=== PATIENT | male | born 1975 | race Caucasian/White ===

== ENCOUNTER → 2020-07-23 08:54 | Outpatient (CLI) | payer BC, SELFPAY ==
--- NOTE | ~2020-07-23 | MR_ITS ---
EXAMINATION: MR lumbar spine wo con DATE: 07/23/2020 09:45 INDICATION: Low back pain. Other spondylosis with radiculopathy, lumbosacral region. TECHNIQUE: Magnetic resonance imaging (MRI) of the lumbar spine was performed without intravenous con trast. Sequences included sagittal T2-weighted FSE, sagittal T2-weighted FS FSE, sagittal T1-weighted FSE, and axial T2-weighted FSE. COMPARISON: None FINDINGS: There is 4 degrees levocurvature of lumbar spine. Vertebral body heights are normal. There is moderately decreased disc height at L4-L5 and mildly decreased disc height at L5-S1 with endplate remodeling. The distal spinal cord signal intensity is normal. The conus medullaris is at L1. The fol lowing disc levels are specifically discussed: L1-L2: The disc does not extend beyond the endplate margin. There is mild bilateral facet joint osteo arthritis. There is no neural foraminal stenosis. There is no central canal stenosis. L2-L3: The disc does not extend beyond the endplate margin. There is mild bilateral facet joint osteo arthritis. There is no neural foraminal stenosis. There is no central canal stenosis. L3-L4: The disc does not extend beyond the endplate margin. There is mild bilateral facet joint osteo arthritis. There is no neural foraminal stenosis. There is no central canal stenosis. L4-L5: The disc is bulging with superimposed central extrusion that abuts the L5 nerve roots in the l ateral recesses. There is mild bilateral facet joint osteoarthritis. There is moderate bilateral neur al foraminal stenosis. There is mild central canal stenosis. L5-S1: There is a central protrusion with annular fissure. There is mild right and moderate left face t joint osteoarthritis. There is no neural foraminal stenosis. There is mild central canal stenosis. IMPRESSION: 1. Moderate lower lumbar spondylosis. Reviewed, dictated and finalized at location A. R MANAGER
== END ==
PROVIDERS: PCP Family Medicine; Visit Provider Family Medicine
DX: M47.27 Other spondylosis with radiculopathy, lumbosacral region (principal)
CPT/HCPCS: 72148

== ENCOUNTER → 2020-11-05 13:09 | Outpatient (CLI) | payer BC, SELFPAY ==
--- NOTE | ~2020-11-05 | XR_ITS ---
XR lumbar spine 2-3V DATE: 11/05/2020 13:37 INDICATION: Low back pain TECHNIQUE: Standing AP, lateral and coned lateral lumbosacral views COMPARISON: 07/23/2020 MRI lumbar spine FINDINGS: Status post posterior and interbody spinal fusion at L4-S1. No hardware failure or displace ment is noted. Normal alignment of the lumbar spine. No fracture or bone destruction is evident. The lumbar pedicles are intact. The sacroiliac joints are intact. IMPRESSION: Status post posterior and interbody spinal fusion at L4-S1 Reviewed, dictated and finalized at location A.
== END ==
PROVIDERS: Visit Provider Neurological Surgery
DX: M54.5 Low back pain (principal); Z98.1 Arthrodesis status
CPT/HCPCS: 72100

== ENCOUNTER → 2020-12-29 07:47 | Outpatient (CLI) | payer BC, SELFPAY ==
--- NOTE | ~2020-12-29 | XR_ITS ---
EXAMINATION: XR lumbar spine 2-3V EXAM DATE: 12/29/2020 08:32 INDICATION: lbp, s/p L4-L5 L5-S1 decompressive laminectomy and fusion. TECHNIQUE: Lumber spine frontal, lateral, lateral L5-S1 projections for interpretation. Comparison is made to prior examination from 11/05/2020. FINDINGS: Lumbar fusion hardware L4-S1 with posterior hardware and interbody devices. L4 bilateral l aminotomies and L5 laminectomies suspected, correlate with history. Sacrum, sacroiliac joints, sacral arcuate lines are intact. Mild aortic arterial sclerosis. The vertebral bodies are aligned in the AP dimension. Vertebral body and disc heights are well-maintained. Paraspinal soft tissue is unremarkab le. IMPRESSION: 1. Intact L4-S1 fusion. 2. Mild facet arthropathy. Reviewed, dictated and finalized at location B.
== END ==
PROVIDERS: Visit Provider Neurological Surgery
DX: M54.5 Low back pain (principal); Z98.1 Arthrodesis status
CPT/HCPCS: 72100

== ENCOUNTER → 2022-05-30 14:54 | Outpatient (CLI) | payer BC, SELFPAY ==
--- NOTE | ~2022-05-30 | US_ITS ---
EXAMINATION: US axilla RT DATE: 05/30/2022 15:17 INDICATION: Right axillary lump TECHNIQUE: Multiple grayscale and Doppler ultrasound images of the region of concern at the right axi lla were obtained. COMPARISON: None FINDINGS: 4 x 4 x 2 mm anechoic cystic lesion in the subcutaneous tissues within 2 mm the skin surface without evident internal vascular flow on color Doppler. Near the cystic lesion is an additional relatively s uperficial 9 x 8 x 5 mm region with poorly defined margins which appears isoechoic and with similar e chotexture to the surrounding subcutaneous fat. There is a second 2.0 x 1.5 x 2.1 cm lesion in the de eper subcutaneous tissues which is also isoechoic and with similar echotexture and internal septated architecture as the surrounding fat. Finally there is a 1.9 x 1.4 x 1.4 cm lesion with superficial ma rgin proximal 1.6 cm from the skin surface which demonstrates peripheral irregular more echogenic rim surrounding a central more hypoechoic region. IMPRESSION: 1. 4 lesions in the subcutaneous tissues, the smallest which appears simple cystic and the 3 larger l esions as detailed above with nonspecific imaging features indeterminate for neoplasm versus artifact ual nodular appearance of subcutaneous fat. This could be better differentiated with either CT or MRI . Reviewed, dictated and finalized at location A. 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 4 lesions in the subcutaneous tissues, the smallest which appears simple cys tic and the 3 larger lesions as detailed above with nonspecific imaging feature s indeterminate for neoplasm versus artifactual nodular appearance of subcutane ous fat. This could be better differentiated with either CT or MRI.
== END ==
PROVIDERS: PCP Nurse Practitioner Family; Visit Provider Nurse Practitioner Family
DX: R22.30 Localized swelling, mass and lump, unspecified upper limb (principal)
CPT/HCPCS: 76882

== ENCOUNTER → 2022-07-14 07:46 | Outpatient (CLI) | payer BC, SELFPAY ==
--- NOTE | ~2022-07-14 | MR_ITS ---
MRI of the right shoulder Technique: Axial proton-density fat-sat images, coronal proton density fat-sat and T2 fat-sat images, and sagittal T1-weighted and T2 fat-sat images were acquired. Following intravenous administration o f 20 cc MultiHance gadolinium, T1-weighted fat-sat imaging was performed in the axial and coronal guillermina porsha. Clinical History: Axillary mass Findings: No significant AC joint degenerative changes identified. Supraspinatus and infraspinatus tendons appear intact. Subscapularis tendon is intact. Tendon of the long head of the biceps is intact. No distinct evidence for labral tear. No degenerative change or effusion of the glenohumeral joint. Inferior glenohumeral ligament appears intact. No muscle atrophy or edema. There is nonspecific subcutaneous soft tissue edema long the lateral righ t hemithorax region/right axilla, without focal fluid collection or definite discrete mass. There is mild enhancement of this area of edematous change on postcontrast images. No pathologic lymphadenopat hy identified. Impression: Amorphous subcutaneous soft tissue edema along the lateral right hemithorax/right axilla, with mild e nhancement. This is nonspecific. Consider cellulitis or other local inflammatory process. No discrete mass or abscess/fluid collection identified. Reviewed, dictated and finalized at location . 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 This is nonspecific. Consider cellulitis or o ther local inflammatory process. No discrete mass or abscess/fluid collection i dentified.
== END ==
PROVIDERS: Visit Provider Surgery
DX: R60.9 Edema, unspecified (principal)
CPT/HCPCS: 73223; A9577

== ENCOUNTER 2023-05-13 12:48 | Emergency (ER) | payer BC, SELFPAY ==
[2023-05-13 13:08] VITALS: BP 129/85; PULSE 103; RESP 16; TEMP 36.2; O2SAT 96
--- NOTE | 2023-05-13 13:17 | ED.URI ---
HPI - URI/Sore Throat General Chief Complaint: Upper Respiratory Infection Stated Complaint: chest congestion,cough Time Seen by Provider: 05/13/23 13:18 Source: patient, RN notes reviewed and old records reviewed Mode of arrival: ambulatory Limitations: no limitations History of Present Illness HPI Narrative: 47-year-old male presents to the [facility] with complaints of cough and chest congestion that started on Monday, 3 days ago. Has been taking NyQuil Denies any fevers, chest pain, abdominal pain. Denies any shortness of breath Related Data Home Medications Medication Instructions Recorded Confirmed methylphenidate HCl 54 mg 54 mg PO DAILY 05/13/23 05/13/23 tablet,extended release 24 hr Allergies Allergy/AdvReac Type Severity Reaction Status Date / Time No Known Allergies Allergy Verified 05/13/23 13:15 Review of Systems Review of Systems: All systems reviewed & are unremarkable except as noted in HPI and below Constitutional: Constitutional: Reports no additional constitutional complaints Eyes: Eyes: Reports no additional eye complaints ENT: Reports system reviewed and no additional complaints, except as documented Cardiovascular: Cardiovascular: Reports no additional cardiovascular complaints, Denies chest pain and Denies dyspnea Respiratory: Respiratory: Reports as per HPI, Reports chest congestion, Reports cough, Denies dyspnea and Denies wheezing Gastrointestinal: Gastrointestinal: Reports no additional gastrointestinal complaints, Denies abdominal pain, Denies nausea and Denies vomiting Musculoskeletal: Musculoskeletal: Reports no additional musculoskeletal complaints Integumentary/Breasts: Skin/Breast: Reports system reviewed and no additional complaints, except as docu Neurologic: Reports system reviewed and no additional complaints, except as documented Psychiatric: Psychiatric: Reports no additional psychiatric complaints Allergic/Immunologic: Allergic/Immunologic: Reports no additional allergic/immunologic complaints [facility] Past Medical History Medical History ADD (attention deficit disorder) BMI 26.0-26.9,adult BMI 28.0-28.9,adult Leg numbness Lumbosacral radiculopathy due to degenerative joint disease of spine Screening for lipid disorders Screening for prostate cancer Tobacco abuse Surgical History Surgical History H/O excision of mass History of back surgery Family History Family History Father Alcoholic Mother No problems noted. Sibling No problems noted. Other Cerebrovascular accident Diabetes mellitus Family history of irritable bowel syndrome Social History Social History Smoking status: Former smoker Tobacco type: e-cigarettes/vaping Second hand tobacco smoke exposure: No Alcohol intake: current Drinks per week: 3 Substance use: never Substance use type: does not use Lack of Transportation: No Lack of Food: Never True Current Housing: I Have Housing Concerned About Future Housing: No Difficulty Paying Gas/Electric Bills: No Difficulty Paying for Meds: No Currently Unemployed: No Education: High School Diploma/GED Difficulty w/ Childcare or Family Care: No Living arrangements: with family Occupation/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 There is no relevant family history pertinent to the patient complaint. Exam Const: General: cooperative, healthy appearing, comfortable, no acute distress, well developed, alert and well nourished Nutritional Appearance: well
== END 2023-05-13 13:35 | disposition home or self-care (01) ==
PROVIDERS: Emergency Provider Nurse Practitioner; PCP Family Medicine
DX: R09.82 Postnasal drip (principal); J40 Bronchitis, not specified as acute or chronic; J06.9 Acute upper respiratory infection, unspecified; F98.8 Other specified behavioral and emotional disorders with onset usually occurring in childhood and adolescence
CPT/HCPCS: 99213; G0463

== ENCOUNTER 2024-05-21 00:07 | Day surgery (SDC) | payer BC, SELFPAY ==
[2024-05-06 13:06] VITALS: BMI 28.9
[2024-05-21 06:57] VITALS: BP 114/77; PULSE 91; RESP 18; TEMP 36.1; O2SAT 100
[2024-05-21] MEDS: LACTATED RINGERS 1,000 ML 150 ML IV CONT (07:05)
--- NOTE | 2024-05-21 07:42 | P.PNAN_ITS ---
Anes - Initial Pre Proc Eval Procedure: Operation Date: 05/21/24 08:00 Proposed Procedures p Screening Colonoscopy - Jayy Pang DO Date/Time: 05/21/24 07:42 Surgeon: Jayy Pang DO Pre Op Diagnosis: screening for malignant neoplasm of colon Patient Data Age: 48 Gender: M Height: 1.88 m Weight: 104.8 kg Last Vital Signs Temp 97 F L 05/21/24 06:57 Pulse 91 05/21/24 06:57 Resp 18 05/21/24 06:57 BP 114/77 05/21/24 06:57 Pulse Ox 100 05/21/24 06:57 O2 Del Method Room Air 05/21/24 06:57 Allergies Allergy/AdvReac Type Severity Reaction Status Date / Time No Known Allergies Allergy Verified 05/21/24 06:56 Home Medications Medication Instructions Recorded Confirmed Type lisdexamfetamine 60 mg capsule 60 mg PO DAILY #30 caps 04/12/24 05/21/24 Rx (Vyvanse) suvorexant 10 mg tablet (Belsomra) 10 mg PO QHS PRN Insomnia 05/06/24 05/21/24 History Patient hx anesthesia problems: none Family hx anesthesia problems: none Results Review: All pre-operative results and documents have been reviewed as part of the pre- operative evaluation. [facility] Past Medical History Medical History ADD (attention deficit disorder) BMI 26.0-26.9,adult BMI 28.0-28.9,adult BMI 29.0-29.9,adult Leg numbness Lumbosacral radiculopathy due to degenerative joint disease of spine Screening for lipid disorders Screening for prostate cancer Tobacco abuse Surgical History Surgical History H/O excision of mass History of back surgery Family History Family History Father Alcoholic Mother No problems noted. Sibling No problems noted. Other Cerebrovascular accident Diabetes mellitus Family history of irritable bowel syndrome Social History Social History Smoking status: Former smoker Tobacco type: e-cigarettes/vaping Second hand tobacco smoke exposure: No Alcohol intake: current Drinks per week: 3 Substance use: never Substance use type: does not use Lack of Transportation: No Lack of Food: Never True Current Housing: I Have Housing Concerned About Future Housing: No Difficulty Paying Gas/Electric Bills: No Difficulty Paying for Meds: No Currently Unemployed: No Education: High School Diploma/GED Difficulty w/ Childcare or Family Care: No Living arrangements: with family Occupation/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: occupation 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 Informed Consent: The patient's anesthetic plan and its attendant risks and benefits were discussed with the patient/family/POA. Questions were solicited and answers provided to the satisfaction of the patient/family/POA.
--- NOTE | 2024-05-21 07:59 | P.HP_ITS ---
H&P: HPI History of Present Illness Date/Time: 05/21/24 07:59 Chief Complaint: Screening for colorectal cancer Narrative: this is a 48-year-old man who presents for colonoscopy. He has never had a colonoscopy before. He denies any hematochezia or melena. He denies family history of colon cancer. Review of Systems Review of Systems: All systems reviewed & are unremarkable except as noted in HPI and below Constitutional: Constitutional: Denies chills, Denies fever(s), Denies headache(s) and Denies weight loss Eyes: Eyes: Denies change in vision ENT: Denies dizziness, Denies headache(s), Denies neck mass and Denies throat swelling Cardiovascular: Cardiovascular: Denies chest pain, Denies lightheadedness and Denies dyspnea Respiratory: Respiratory: Denies cough, Denies dyspnea and Denies wheezing Gastrointestinal: Gastrointestinal: Denies abdominal pain, Denies change in bowel habits, Denies nausea and Denies vomiting Genitourinary: Genitourinary: Denies hematuria and Denies dysuria Musculoskeletal: Musculoskeletal: Reports as per HPI Integumentary/Breasts: Skin/Breast: Reports as per HPI Neurologic: Denies dizziness and Denies headache(s) Allergic/Immunologic: Allergic/Immunologic: Denies throat swelling and Denies wheezing PMF Past Medical History Medical History ADD (attention deficit disorder) BMI 26.0-26.9,adult BMI 28.0-28.9,adult BMI 29.0-29.9,adult Leg numbness Lumbosacral radiculopathy due to degenerative joint disease of spine Screening for lipid disorders Screening for prostate cancer Tobacco abuse Surgical History Surgical History H/O excision of mass History of back surgery Family History Family History Father Alcoholic Mother No problems noted. Sibling No problems noted. Other Cerebrovascular accident Diabetes mellitus Family history of irritable bowel syndrome Social History Social History Smoking status: Former smoker Tobacco type: e-cigarettes/vaping Second hand tobacco smoke exposure: No Alcohol intake: current Drinks per week: 3 Substance use: never Substance use type: does not use Lack of Transportation: No Lack of Food: Never True Current Housing: I Have Housing Concerned About Future Housing: No Difficulty Paying Gas/Electric Bills: No Difficulty Paying for Meds: No Currently Unemployed: No Education: High School Diploma/GED Difficulty w/ Childcare or Family Care: No Living arrangements: with family Occupation/Education: occupation 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 Gender identity (if verbalized by the patient): Male Spiritual care concerns: No Meds Home Medications and Allergies Home Medications Medication Instructions Recorded Confirmed Type lisdexamfetamine 60 mg capsule 60 mg PO DAILY #30 caps 04/12/24 05/21/24 Rx (Vyvanse) suvorexant 10 mg tablet (Belsomra) 10 mg PO QHS PRN Insomnia 05/06/24 05/21/24 History Allergies Allergy/AdvReac Type Severity Reaction Status Date / Time No Known Allergies Allergy Verified 05/21/24 06:56 Vital Signs Vital Signs - 24 hr 05/21/24 06:57 Temperature 97 F L Pulse Rate 91 Respiratory Rate 18 Blood Pressure 114/77 Pulse Oximetry 100 Oxygen Delivery Room Air Exam Const: General: no acute distress and alert Orientation/consciousness: patient oriented x3 HENMT: Head: normocephalic and atraumatic Ears: hearing grossly normal bilaterally Face/Nose/Sinus: Normal nares present Mouth: Yes Normal oral and palatal mucosa present Eyes: Periorbital: periorbital findings normal Sclera: sclerae normal EOM: EOMs intact bilaterally Neck: Neck: normal visual inspection, no lymphadenopathy and trachea midline Chest: Chest palpation & inspection: normal inspection of the chest Resp: Effort & Inspection: normal respiratory effort Auscultation: clear to auscultation bilaterally Cardio: Jugular venous distension: no JVD Rate: regular rate Rhythm: regular rhythm Heart sounds: S1 normal heart sound present and S2 normal heart sound present Peripheral pulses: Peripheral pulses 2+ throughout GI: Inspection: normal to inspection GI Palp: Yes Soft to palpation, No Tenderness to palpation present (GI), No Guarding due to palpation present (GI) and No Rebound tenderness present Percussion: Yes normal to percussion Auscultation: normal bowel sounds : General: Yes no CVA tenderness Back/Spine/Pelvis: Back: no CVA tenderness Neuro: General: patient oriented x3, no focal motor deficits and CN's II-XI intact bilaterally Cognition (Neuro): normal cognition Speech: normal speech Motor exam (neuro): 5/5 motor strength present throughout Extrem: General: capillary refill normal and no clubbing, cyanosis or edema Assessment and Plan Assessment and plan (1) Screen for colon cancer: Code(s): Z12.11 - Encounter for screening for malignant neoplasm of colon Status: Acute Assessment and Plan: I have recommended colonoscopy. I have discussed the procedure, risks, benefits, and alternatives. Questions were answered. Patient is agreeable to p roceed.
[2024-05-21 08:19] VITALS: BP 105/67; PULSE 79; RESP 17; O2SAT 95
[2024-05-21 08:29] VITALS: BP 111/77; PULSE 84; RESP 19; O2SAT 95
[2024-05-21 08:39] VITALS: BP 111/79; PULSE 75; RESP 17; O2SAT 96
== END 2024-05-21 08:48 | disposition home or self-care (01) ==
PROVIDERS: PCP Family Medicine; Visit Provider Surgery
PROC: 0DJD8ZZ Inspection of Lower Intestinal Tract, Via Natural or Artificial Opening Endoscopic (ICD-10-PCS; CPT 45378; principal; 2024-05-21 08:00)
DX: Z12.11 Encounter for screening for malignant neoplasm of colon (principal); D12.8 Benign neoplasm of rectum; F98.8 Other specified behavioral and emotional disorders with onset usually occurring in childhood and adolescence; M51.9 Unspecified thoracic, thoracolumbar and lumbosacral intervertebral disc disorder; E66.9 Obesity, unspecified; Z68.29 Body mass index [BMI] 29.0-29.9, adult; Z98.890 Other specified postprocedural states; Z87.891 Personal history of nicotine dependence; Z82.49 Family history of ischemic heart disease and other diseases of the circulatory system
CPT/HCPCS: 45380; 88305; J2003; J2704; J7120

== ENCOUNTER 2024-08-13 12:25 | Emergency (ER) | payer BC, SELFPAY ==
--- NOTE | ~2024-08-13 | XR_ITS ---
EXAMINATION: XR ribs RT 2V w CXR 2V DATE: 08/13/2024 13:10 INDICATION: Right lateral back pain. TECHNIQUE: Frontal and lateral views of the chest and 2 views of the right ribs were obtained. COMPARISON: Chest 2 views 10/16/2018 FINDINGS: CHEST TWO VIEWS: There is no pneumonia, pleural effusion, or pneumothorax. The heart size is normal. RIGHT RIBS: There is no rib fracture. IMPRESSION: 1. No rib fracture. Reviewed, dictated and finalized at location [facility]. [employer] IMPRESSION: 1. No rib fracture.
--- OUTSIDE RECORDS SUMMARY | 2024-08-13 12:27 | XMS_ITS | Clinical Summary ---
Author Organization [facility] Address [address] [place] [id number] Care Team Providers Care Family Nurse Name Role Phone Unavailable Primary Care Provider Unavailabl e Social History Tobacco Use Types Packs/Day Years Used Date Smoking Tobacco: Never Assessed Sex and Gender Information Value Date Recorded Sex Assigned at Not on file Legal Sex Male 4:19 PM CDT Gender Identity Not on file Sexual Orientation Not on file Last Filed Vital Signs Vital Sign Reading Time Taken Comments Blood Pressure 126/76 03/21/2016 8:05 AM CDT Pulse 93 03/21/2016 8:05 AM CDT Temperature - - Respiratory Rate - - Oxygen Saturation - - Inhaled Oxygen Concentration - - Weight 92.5 kg (204 lb) 03/21/2016 8:05 AM CDT Height 188 cm (6' 2 ) 03/21/2016 8:05 AM CDT Body Mass Index 26.19 03/21/2016 8:05 AM CDT Plan of Treatment Health Maintenance Due Date Last Done Comments Colorectal Cancer Screening Colonoscopy (10 Years) 1974 Annual Physical 1977 Hepatitis C 1992 DTaP, Tdap and Td Vaccines ( 1 - Tdap) 1993 Hepatitis B Vaccines (1 of 3 - 19+ 3-dose series) 1993 COVID-19 Vaccine (2023-2 5 season) 2024 Influenza Adult (#1) 2024 Meningococcal B Vaccine Aged Out No l onger eligible based on patient's age to complete this topic Meningococcal Vaccine Aged Out No new avis eligible based on patient's age to complete this topic Pneumococcal Vaccine: Pediat rics (0 to 5 Years) and At-Risk Patients (6 to 64 Years) Aged Out No longer eligible b ased on patient's age to complete this topic RSV Immunizations Under 20 Months Aged Out No longer eligible based on patient's age to complete this topic
--- OUTSIDE RECORDS SUMMARY | 2024-08-13 12:27 | XMS_ITS | Encounter Summary ---
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 Name Role Phone Unavailable Primary Care Provider Unavailabl e Encounter Details Date Type Department Care Team (Late st Contact Info) Description 03/18/2016 Abstract [facility] Conversion Md, Generic Conversion, Social History Tobacco Use Types Packs/Day Years Used Date Smoking Tobacco: Never Assessed Sex and Gender Information Value Date Recorded Sex Assigned at Not on file Legal Sex Male 4:19 PM CDT Gender Identity Not on file Sexual Orientation Not on file documented as of this encounter Plan of Treatment Not on file documented as of this encounter Visit Diagnoses Not on filedocumented in this encounter
[2024-08-13 12:33] VITALS: BP 151/98; PULSE 112; RESP 18; TEMP 36.1; O2SAT 97
--- NOTE | 2024-08-13 12:58 | ED.GENADULT ---
HPI - General Adult General Chief complaint: Back Pain/Injury Stated complaint: Fever /Rt Side Pain History of Present Illness HPI narrative: Donald Blount is a 48 y/o male who presents with right lateral rib pain. 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 He states that moving and palpation makes his pain worse. He denies any shortness of breath. No increased cough or fevers -- he has been taking Tylenol Motrin for pain he states coughing sneezing and getting out of bed it makes his pain extremely worse. Related Data Home Medications ?Medication ?Instructions ?Recorded ?Confirmed ?Last Taken ?Type suvorexant 10 mg tablet (Belsomra) 10 mg PO QHS PRN Insomnia 05/06/24 05/21/24 Unknown History Allergies Allergy/AdvReac Type Severity Reaction Status Date / Time No Known Allergies Allergy Verified 08/13/24 12:51 Review of Systems Review of Systems: All systems reviewed & are unremarkable except as noted in HPI and below PMFSH Past Medical History Medical History BMI 29.0-29.9,adult BMI 26.0-26.9,adult ADD (attention deficit disorder) BMI 28.0-28.9,adult Screening for lipid disorders Screening for prostate cancer Leg numbness Lumbosacral radiculopathy due to degenerative joint disease of spine Tobacco abuse Surgical History Surgical History History of back surgery H/O excision of mass Family History Family History Father Alcoholic Mother No problems noted. Sibling No problems noted. Other Cerebrovascular accident Diabetes mellitus Family history of irritable bowel syndrome Social History Social History Smoking status: Former smoker Tobacco type: e-cigarettes/vaping Second hand tobacco smoke exposure: No Alcohol intake: current Drinks per week: 3 Substance use: never Substance use type: does not use Lack of Transportation: No Lack of Food: Never True Current Housing: I Have Housing Concerned About Future Housing: No Difficulty Paying Gas/Electric Bills: No Difficulty Paying for Meds: No Currently Unemployed: No Education: High School Diploma/GED Difficulty w/ Childcare or Family Care: No Living arrangements: with family Occupation/Education: occupation 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 HEAD: Normocephalic, atraumatic. EYES: PERRLA and EOMI. ENT: Nares clear, no rhinorrhea or epistaxis. Mucous membranes moist. Oropharynx without tonsillar hypertrophy exudate or other lesions. NECK: Supple. No adenopathy or masses. No carotid bruits or JVD CHEST: Clear to auscultation. No respiratory distress. No wheezes rales or rhonchi- skin color normal for ethnicity / no rash/ erythema/ ecchymosis noted. HEART: Regular rate and rhythm. No murmur heard. Normal peripheral pulses. ABDOMEN: Soft, nontender, nondistended, normal active bowel sounds. EXTREMITIES: Normal range of motion. No edema. SKIN: Warm, dry, no rash. NEURO: No focal deficits. Alert and oriented x3. PSYCH: Normal mood and affect. Course Course Level of Care: Express Care Visit Vital Signs Vital signs: Vital Signs Temperature 36.1 C L 08/13/24 12:33 Pulse Rate 112 H 08/13/24 12:33 Respiratory Rate 18 08/13/24 12:33 Blood Pressure 151/98 H 08/13/24 12:33 Pulse Oximetry 97 08/13/24 12:33 Oxygen Delivery Room Air 08/13/24 12:33 Temperature 36.1 C L 08/13/24 12:33 Pulse Rate 112 H 08/13/24 12:33 Respiratory Rate 18 08/13/24 12:33 Blood Pressure 151/98 H 08/13/24 12:33 Pulse Oximetry 97 08/13/24 12:33 Oxygen Delivery Room Air 08/13/24 12:33 Medical Decision Making [facility] Narrative Medical decision making narrative: 48 y/o who presents with complaints of having right lateral rib pain after a large cough 1 week ago. He thought the pain would get better and has continued. He states pain is worse with palpation. Pain is also worse with movement and getting in bed. He denies any shortness of breath. Denies any cough or fever on exam lung sounds are clear throughout. Skin color is normal for ethnicity no rash, lesions, erythema, ecchymosis noted. Respirations are even nonlabored. Pain is reproducible with palpation to the right lower posterior/ lateral right rib area. oxygen is 97% on room air respirations are 18 min discussed with patient that his heart rate was elevated to 112 he states he took his Vyvanse today which increases his heart rate. Concern for rib fracture, costochondritis, pneumothorax, muscle strain offered Tylenol Motrin here which he declined states he has been taking the home we will check a two view chest and a right rib x-ray here imaging: no pneumonia, pleural effusion or pneumothorax no rib fractures Patient updated on his insert DC home with advice there is a, approximately a.m., the same t.i.d. p.r.n., lidocaine patches and PCP follow-up. Encouraged to follow up with PCP in 3-5 days to ensure he is better Strict return precautions provided Medical Records Medical records reviewed: Yes I reviewed the external patient's medical records. Vital Signs Vital Signs: Vital Signs Temperature 36.1 C L 08/13/24 12:33 Pulse Rate 112 H 08/13/24 12:33 Respiratory Rate 18 08/13/24 12:33 Blood Pressure 151/98 H 08/13/24 12:33 Pulse Oximetry 97 08/13/24 12:33 Oxygen Delivery Room Air 08/13/24 12:33 Temperature 36.1 C L 08/13/24 12:33 Pulse Rate 112 H 08/13/24 12:33 Respiratory Rate 18 08/13/24 12:33 Blood Pressure 151/98 H 08/13/24 12:33 Pulse Oximetry 97 08/13/24 12:33 Oxygen Delivery Room Air 08/13/24 12:33 vitals reviewed by me Imaging Data Radiologist's impression: Impressions Ribs w/Chest X-Ray 08/13/24 13:13 IMPRESSION: 1. No rib fracture. Discharge Plan Discharge Clinical Impression: Acute costochondritis, Muscle strain Patient Disposition: Home, Self-Care Condition: Stable Instructions: Antibiotic Form Additional Instructions: start taking the naproxen twice daily for pain, you may take the cyclobenzaprine to 3 times a day for muscle spasms this may make you sleepy do not drive or operate machinery while taking this. Start using the lidocaine patches 12 hours on 12 hours off to the area that is painful rest, ice area pain expect this to start to improve in the next few days. If he develops any worsening symptoms such as increased pain, shortness of breath, difficulty breathing then proceed to the ER. The x-rays here did not show any abnormal findings in your lungs or her ribs however if you have continued pain a CT scan does provide more details that may show something that the x-ray did not show. Patient Language: Danish Prescriptions: New naproxen 500 mg tablet 500 mg PO BID PRN (Reason: pain) Qty: 28 0RF cyclobenzaprine 10 mg tablet 10 mg PO TID PRN (Reason: muscle spasm) Qty: 30 0RF lidocaine 5 % adhesive patch,medicated 1 patch topical DAILY Qty: 30 0RF Rx Instructions: leave on most painful area for up to 12 hrs No Action Belsomra 10 mg tablet 10 mg PO QHS PRN (Reason: Insomnia) Rx Instructions: Has tried trazodone and melantonin lisdexamfetamine [Vyvanse] 60 mg capsule 60 mg PO DAILY Qty: 30 0RF Follow-up/Referrals: Darius Jessica MD [Primary Care Provider] - 3 Days
== END 2024-08-13 14:00 | disposition home or self-care (01) ==
PROVIDERS: Emergency Provider Nurse Practitioner Family; PCP Family Medicine
DX: M94.0 Chondrocostal junction syndrome [Tietze] (principal); S29.012A Strain of muscle and tendon of back wall of thorax, initial encounter; X50.9XXA Other and unspecified overexertion or strenuous movements or postures, initial encounter
CPT/HCPCS: 71046; 71100; 99213; G0463

== ENCOUNTER 2024-10-09 10:22 | Outpatient (CLI) | payer BC, SELFPAY ==
--- OUTSIDE RECORDS SUMMARY | 2024-10-09 11:30 | XMS_ITS | Encounter Summary ---
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
--- OUTSIDE RECORDS SUMMARY | 2024-10-09 11:30 | XMS_ITS | Clinical Summary ---
Author Organization [facility] Address [address] [place] [id number] Care Team Providers Care Intermediate Frame Tender Name Role Phone Unavailable Primary Care Provider [...] - 19+ 3-dose series) 1993 COVID-19 Vaccine ( - 2023-2 5 season) 2024 Zoster Vaccines (1 of 2) 2024 Meningococcal B Vaccine Aged Out No l onger eligible based on patient's age to complete this topic Meningococcal Vaccine Aged Out No new avis eligible based on patient's age to complete this topic Pneumococcal Vaccine: Pediat rics (0 to 5 Years) and At-Risk Patients (6 to 49 Years) Aged Out No longer eligible b ased on patient's age to complete this topic RSV Immunizations Under 20 Months Aged Out No longer eligible based on patient's age to complete this topic
--- NOTE | 2024-10-21 16:26 | WPDHOLTEREM ---
Holter/Event Monitor Holter/Event Monitor Date of procedure: 10/09/24 Holter/Event Procedure: 3-7 Day Holter Monitor Indications: Cardiac arrhythmia Conclusion: 1. 3 days holter monitor on 10/09/24. 2. Predominant rhythm is sinus rhythm. HR range 55-245 bpm; average HR 106 bpm. 3. There are occasional premature supraventricular complexes, rare supraventricular couplets, and rare supraventricular triplets. There are 1,868 episodes of supraventricular tachycardia with fastest at 245 bpm and longest lasting 12 minutes and 46 seconds. 4. There are rare premature ventricular complexes. No ventricular tachycardia. 5. No significant pauses greater than 3 seconds. 6. No symptoms available for correlation.
== END 2024-10-09 10:23 | disposition home or self-care (01) ==
LOC: ANHCARD 10:24
PROVIDERS: PCP Family Medicine; Visit Provider Nurse Practitioner Family
DX: I49.1 Atrial premature depolarization (principal); I47.10 Supraventricular tachycardia, unspecified; I49.3 Ventricular premature depolarization
CPT/HCPCS: 93242